=== PATIENT | female | born 1990 | race African-American/Black ===

== ENCOUNTER 2016-09-16 09:12 | Emergency (ER) | payer OTHER ==
--- NOTE | ~2016-09-16 | CT55 ---
[facility] A Service of [facility] RADIOLOGY TEXT RESULTS PATIENT: LUMA FLEMING LOCATION: [facility] : [birth year] UNIT #: [id number] AGE: [address]: Sondra Cervantes SEX: F ORDER DR: [id number] [facility]. [place], [place] [address] [id number] MR#: [id number] Acc #: [id number] NAME: LUMA FLEMING : 1990 SEX: F STUDY DATE/TIME: 09/16/2016 10:12 UNIT: [facility] ROOM: STUDY DESCRIPTION: CT Chest W Con Attending Physician: Sondra Cervantes P.A.-C. Ordering Physician: Sondra Cervantes P.A.-C. Primary Care Physician: No Primary Care Physician MEDICAL IMAGING REPORT This report is preliminary unless electronic signature is present EXAM CT chest with contrast, 09/16/2016, 1012 hours. CLINICAL HISTORY 26-year-old woman for evaluation of complaint of right breast swelling, redness for 2 days. COMPARISON Chest x-ray, 08/03/2015. TECHNIQUE Dynamic helical CT images were obtained from the thoracic inlet through the adrenal glands. Sagittal and coronal reconstructions were performed. Contrast was Isovue-370 70 mL IV. Total exam DLP 1061 mGy-cm. This CT exam was performed with one or more of the following radiation dose reduction techniques: automatic exposure control, adjustment of mA and/or kV according to patient size, and iterative reconstruction. FINDINGS Images through the thoracic inlet demonstrate no thyroid mass or supraclavicular adenopathy. Images through the chest demonstrate a small amount of residual thymic tissue in the anterior mediastinum, morphologically appearing to represent benign thymus. The aorta, pulmonary arteries, cardiac chambers, pericardium and esophagus are normal. There is no lymphadenopathy. Lung window images demonstrate clear lungs. There is no pleural effusion. Limited views through the upper abdomen demonstrate a normal appearance to the liver, spleen, pancreas, gallbladder, and bile ducts. The adrenal glands are normal. [facility] A Service of [facility] RADIOLOGY TEXT RESULTS PATIENT: LUMA FLEMING LOCATION: [facility] : [birth year] UNIT #: [id number] AGE: [address]: Sondra Cervantes SEX: F ORDER DR: There is suggested skin thickening in the right breast laterally, both above and below the plane of the nipple with question of a small area of induration with 1.5 cm nodular area which could represent a solid nodule versus a fluid-filled nodule laterally and inferiorly. Findings are nonspecific. Mastitis with small abscess is possible. A breast malignancy cannot be excluded but would be uncommon in this age group. Further evaluation with breast ultrasound targeting the lower outer quadrant of the right breast is recommended to assess for solid versus cystic change at this 1.5 cm rounded nodular area best seen on image 23 series 4. IMPRESSION 1. There is skin thickening of the lateral right breast, both above and below the plane of the nipple. In the inferolateral breast, there is some ground-glass change in the fat with a 1.5 cm poorly defined rounded area present. It is indeterminate for solid versus cystic change. Findings could represent mastitis with underlying small inflamed cyst or abscess. Alternatively, an inflammatory malignancy could have this appearance. Malignancy is uncommon at age 26. Further evaluation with breast ultrasound targeting the lower outer quadrant of the right breast is recommended to determine solid versus cystic change. 2. Chest CT is otherwise negative. There is no lymphadenopathy. The lungs are clear and there are no effusions. STAT * RESULT Dictated by... Guerita Kee M.D. THIS IS AN ELECTRONICALLY VERIFIED REPORT Guerita Kee M.D. at 09/16/2016 2:29 PM ERIC/jayson TD: 09/16/2016 11:07 JOB #: [id number] MEDICAL IMAGING REPORT Page 1 of 1 COPY
[~2016-09-16 09:12] MED LIST: AUGMENTIN PO; BACTRIM DS TABL1 TA1 PO; EC-NAPROSYN500 MG PO; IBUPROFEN800 MG PO; KEFLEX PO; SALICYLIC ACID; ULTRAM PO; VICODIN 5/1 TAB 5/50 PO
[2016-09-16 09:28] LABS: BASOPHIL# 0.1 X10e3 (0-0.3); EOSINOPHIL# 0.8 X10e3 (0-0.7); EOSINOPHIL% 7.9 % (0.0-7.0); HEMATOCRIT 39.3 % (35.0-45.0); HEMOGLOBIN 12.8 gm/dL (12.0-16.0); LYMPHOCYTE# 2.5 X10e3 (1.0-3.5); LYMPHOCYTE% 24.6 % (17.0-45.0); MEAN CELL VOLUME 82.1 FL (83-96); MEAN CORPUSCULAR HEMOGLOBIN 26.7 PG (28-34); MEAN CORPUSCULAR HGB CONC 32.6 g/dL (30-36); MEAN PLATELET VOLUME 7.7 FL (6.5-11.5); MONOCYTE# 0.9 X10e3 (0-1.0); MONOCYTE% 9.1 % (3.0-12.0); NEUTROPHIL# 5.8 X10e3 (1.5-7.1); NEUTROPHIL% 57.4 % (40-75); PLATELET COUNT 370 X10e3 (140-420); RED BLOOD COUNT 4.79 X10e (3.90-5.30); RED CELL DISTRIBUTION WIDTH 14.2 % (11.0-15.5); WHITE BLOOD COUNT 10.1 X10e3 (4.0-10.5)
[2016-09-16 09:29] LABS: DIFF IND NO
[2016-09-16 09:51] LABS: CALCIUM SERUM 8.7 mg/dL (8.4-10.2); CREATININE SERUM 0.6 mg/dL (0.6-1.4); GLOM FILT RATE Estimated 143.8 mL/min (>60); POTASSIUM 3.8 mmol/L (3.5-5.1)
== END 2016-09-16 12:50 | disposition home or self-care (01) ==
LOC: CFTX 09:12
PROVIDERS: Physician Assistant
DX: N61.0 Mastitis without abscess (principal); J45.909 Unspecified asthma, uncomplicated; F17.210 Nicotine dependence, cigarettes, uncomplicated
CPT/HCPCS: 36415; 71260; 80048; 84703; 85025; 87040; 96365; 96366; 99284; J1885; J3370; Q9967